=== PATIENT | male | born 1975 | race Caucasian/White ===

== ENCOUNTER 2016-09-29 02:51 | Emergency (ER) | payer OTHER ==
[~2016-09-29] VITALS: Ht 177.8 cm; Wt 99.8 kg
[~2016-09-29 02:51] MED LIST: ZITHROMAX250 M2 PO
[2016-09-29 03:04] VITALS: BP 114/76
--- NOTE | 2016-09-29 03:15 | ED GI/GU/ABDOMINAL COMPLAINT ---
History of Present Illness General Chief Complaint: Abdominal Pain/Flank Pain Stated Complaint: PAINFUL HERNIA PER PT Source: patient Exam Limitations: no limitations Vital Signs & Intake/Output Vital Signs & Intake/Output Vital Signs Date Time Temp Pulse Resp B/P Pulse O2 O2 Flow FiO2 Ox Delivery Rate 09/29 0304 96.1 86 18 114/76 98 Room Air Allergies Coded Allergies: NO KNOWN ALLERGIES (09/29/16) Reconcile Medications No Known Home Medications Triage Note: TRIAGE: PATIENT TO ER FROM HOME W/ HX HERNIA X MANY YEARS, REPORTS X 1-2 HOURS SEVERE INTERMITTENT SHARP PAINS TO HERNIA SITE. PATIENT REPORTS "DON'T KNOW IF IT GOES BACK IN OR NOT, JUST HURTS." PAIN 10/10 AT PRESENT. DENIES V/D, +SLIGHT NAUSEA. Triage Nurses Notes Reviewed? yes Onset: Abrupt Duration: hour(s): Timing: single episode today Quality/Severity: cramping Location: umbilical Radiation: no radiation Activities at Onset: none Modifying Factors: Worsens With: palpation. Associated Symptoms: "I have a hernia and its stuck." HPI: 40-year-old gentleman with history of an umbilical hernia presents with umbilical pain and swelling. He states that he awoke in the middle the night with umbilical pain. He states that there is a swelling where his hernia is. He is unable to reduce the hernia. He has mild nausea but no vomiting. He has no fever chills diarrhea. He is otherwise well and has no other concerns. Past History Travel History Traveled to [place] past 21 day No Medical History Any Pertinent Medical History? 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 No Review of Systems Review of Systems Constitutional: Reports: no symptoms. EENTM: Reports: no symptoms. Respiratory: Reports: no symptoms. Cardiovascular: Reports: no symptoms. GI: Reports: no symptoms. Genitourinary: Reports: no symptoms. Musculoskeletal: Reports: no symptoms. Skin: Reports: no symptoms. Neurological/Psychological: Reports: no symptoms. Hematologic/Endocrine: Reports: no symptoms. Immunologic/Allergic: Reports: no symptoms. All Other Systems: Reviewed and Negative Physical Exam Physical Exam General Appearance: well developed/nourished, mild distress, moderate distress Head: atraumatic Eyes: Bilateral: normal appearance. Ears, Nose, Throat, Mouth: hearing grossly normal Neck: normal inspection, supple, full range of motion Respiratory: normal breath sounds, chest non-tender, no respiratory distress, quiet respiration Cardiovascular: regular rate/rhythm Gastrointestinal: normal bowel sounds, no organomegaly, large umbilical hernia, approximately 6 x 6 cm, tender to palpation. Extremities: normal range of motion Neurologic/Psych: no motor/sensory deficits, awake, alert, oriented x 3 Skin: intact, normal color, warm/dry Core Measures ACS in differential dx? No Severe Sepsis Present: No Septic Shock Present: No Progress Differential Diagnosis: umbilical hernia versus other Plan of Care: Orders Procedure Date/time Status COMPREHENSIVE METABOLIC PANEL 09/29 330 Complete CBC WITHOUT DIFFERENTIAL 09/29 330 Complete TYPE & SCREEN (NOT X-MATCH) 09/29 330 Complete Laboratory Tests 09/29/16 0400: Anion Gap 11, Estimated GFR > 60, BUN/Creatinine Ratio 21.1, Glucose 123 H, Calcium 9.5, Total Bilirubin 0.8, AST 31, ALT 41, Alkaline Phosphatase 87, Total Protein 7.5, Albumin 4.3, Globulin 3.2, Albumin/Globulin Ratio 1.3, CBC w Diff MAN DIFF ORDERED, RBC 4.87, MCV 91.8, MCH 30.9, RDW 13.7, MPV 7.4, Gran % 91.6 H, Lymphocytes % 5.8 L, Monocytes % 2.4, Eosinophils % 0.1, Basophils % 0.1, Absolute Granulocytes 21.3 H, Segmented Neutrophils 90 H, Band Neutrophils 1, Absolute Lymphocytes 1.4, Lymphocytes 4 L, Monocytes 5, Absolute Monocytes 0.6, Absolute Eosinophils 0, Absolute Basophils 0, Platelet Estimate ADEQUATE, Normocytic RBCs VERIFIED, Normochromic RBCs VERIFIED, PUBS MCHC 33.6, Fld Total RBCs Counted 100 Diagnostic Imaging: Viewed by Me: CT Scan. Discussed w/RAD: CT Scan. Radiology Impression: ABD/PELVIC CT... FAT AND BOWEL CONTAINING HERNIA, WITHOUT OBSTRUCTION Initial ED EKG: none Comments: PATIENT: SNOW [place]AD[place] PRESENT AGE: 40 PATIENT ACCOUNT NO: [id number] : 74 LOCATION: [facility] ORDERING PHYSICIAN: LASHAWN REDMOND MD SERVICE DATE: 09/29/16 EXAM TYPE: CAT - CT ABD & PELVIS W/O IV CONTRAS EXAMINATION: CT ABDOMEN AND PELVIS WITHOUT CONTRAST CLINICAL INFORMATION: Abdominal pain. Umbilical hernia. COMPARISON: None. TECHNIQUE: Contiguous axial thin section helical images of the abdomen and pelvis were performed without oral or IV contrast. The data set was reformatted in the coronal and sagittal planes and reviewed on an independent workstation. DLP: 543 mGy-cm. FINDINGS: There is dependent bibasilar atelectasis there is a 6 mm nodule within the right lower lobe on image 40/784. There is mild bilateral lower lobe bronchial wall thickening. The visualized portions of the heart are unremarkable. There is a small hiatal hernia. The liver is of normal size and attenuation without focal lesions nor intrahepatic biliary ductal dilation. A normal gallbladder is identified. There is no wall thickening or discernible pericholecystic fluid. The spleen, pancreas, adrenal glands are unremarkable. Both kidneys are of normal size and attenuation without hydronephrosis or nephrolithiasis. There is no abdominal free fluid. There is neither mesenteric nor retroperitoneal lymphadenopathy. There is a bowel and fat-containing umbilical hernia without evidence of obstruction. There is sigmoid diverticulosis without evidence of diverticulitis. Otherwise, unremarkable unopacified loops of small and large bowel are identified. A normal appendix is identified. There is no pelvic free fluid. The urinary bladder is unremarkable. There is neither pelvic nor inguinal lymphadenopathy. There are bilateral fat-containing inguinal hernias. Bone windows: Neither sclerotic nor lytic bone lesions are identified. IMPRESSION: Fat and bowel containing umbilical hernia without evidence of obstruction. Sigmoid diverticulosis without evidence of diverticulitis. 6 mm right lower lobe pulmonary nodule. Various management parameters for solitary pulmonary nodules are in the literature. According to the Fleischner Society, recommendations for pulmonary nodules are as follows: Nodule size < or = to 4 mm in LOW RISK PATIENTS: No follow up needed. Nodule size < or = to 4 mm in HIGH RISK PATIENTS: Follow up CT at 12 months; if unchanged, no further follow up. Nodule size > 4-6 mm in LOW RISK PATIENTS: Follow up CT at 12 months; if unchanged, no further follow up. Nodule size > 4-6 mm in HIGH RISK PATIENTS: Initial follow up CT at 6-12 months, then at 18-24 months if no change. Nodule size > 6-8 mm in LOW RISK PATIENTS: Initial follow up CT at 6-12 months, then at 18-24 months if no change. Nodule size > 6-8 mm in HIGH RISK PATIENTS: Initial follow up CT at 3-6 months, then 9-12 months and 24 months if no change. Nodule size > 8 mm in LOW RISK PATIENTS: Follow up CT at around 3, 9, and 24 months, dynamic contrast-enhanced CT, PET, and/or biopsy. Nodule size > 8 mm in HIGH RISK PATIENTS: Same as for low-risk patients. DICTATED BY: TRISH LEE MD DATE/TIME DICTATED:09/29/16446 HADOOP CONSULTANT:AMBER DATE/TIME TRANSCRIBED:09/29/16446 CONFIDENTIAL, DO NOT COPY WITHOUT APPROPRIATE AUTHORIZATION. <Electronically signed in Other Vendor System> SIGNED BY: TRISH LEE MD 09/29/16 0458 Departure Departure Disposition: HOME OR SELF CARE Condition: Stable Clinical Impression Primary Impression: Umbilical hernia Secondary Impressions: Pulmonary nodules Referrals: PATIENT HAS NO PRIMARY CARE DR (PCP/Family) Departure Forms: Customer Survey General Discharge Information Prescriptions: Current Visit Scripts No Known Home Medications Comments 09/29/16, 5:20am... pt feeling well in ED after hernia reduction.... elevated wbc count noted... likely reactive given his painful hernia... I discussed this finding with him as well as the pulmonary nodules. He will follow up with the general surgeon and his PMD. He will return should his hernia recur. Procedures Additional Procedures Additional Procedures: hernia reduction Progress: with patient consent, with gentle pressure, the umbililcal hernia was easily reduced.
[2016-09-29 04:09] LABS: ABSOLUTE BASOPHIL COUNT 0 /CUMM (0.0-0.2); ABSOLUTE EOSINOPHIL COUNT 0 /CUMM (0.0-0.7); ABSOLUTE GRANULOCYTE CT 21.3 /CUMM (1.4-6.5); ABSOLUTE LYMPH COUNT 1.4 /CUMM (1.2-3.4); ABSOLUTE MONOCYTE COUNT 0.6 /CUMM (0.10-0.60); BASOPHIL % 0.1 % (0.0-2.0); EOSINOPHIL % 0.1 % (0-5); GRANULOCYTE % 91.6 % (42.2-75.2); HEMATOCRIT 44.7 % (42-52); MEAN CORPUSCULAR HGB 30.9 PG (27.0-31.0); MEAN CORPUSCULAR HGB CONC 33.6 G/DL (33.0-37.0); MEAN CORPUSCULAR VOLUME 91.8 FL (80.0-94.0); MEAN PLATELET VOLUME 7.4 FL (7.4-10.4); PLATELET COUNT 341 /CUMM (130-400); RBC DISTRIBUTION WIDTH 13.7 % (11.5-14.5); RED BLOOD CELL CT 4.87 /CUMM (4.70-6.10); WHITE BLOOD CELL COUNT 23.3 /CUMM (4.8-10.8)
--- NOTE | 2016-09-29 04:58 | CT SCAN REPORT ---
EXAMINATION: CT ABDOMEN AND PELVIS WITHOUT CONTRAST CLINICAL INFORMATION: Abdominal pain. Umbilical hernia. COMPARISON: None. TECHNIQUE: Contiguous axial thin section helical images of the abdomen and pelvis were performed without oral or IV contrast. The data set was reformatted in the coronal and sagittal planes and reviewed on an independent workstation. DLP: 543 mGy-cm. FINDINGS: There is dependent bibasilar atelectasis there is a 6 mm nodule within the right lower lobe on image 40/784. There is mild bilateral lower lobe bronchial wall thickening. The visualized portions of the heart are unremarkable. There is a small hiatal hernia. The liver is of normal size and attenuation without focal lesions nor intrahepatic biliary ductal dilation. A normal gallbladder is identified. There is no wall thickening or discernible pericholecystic fluid. The spleen, pancreas, adrenal glands are unremarkable. Both kidneys are of normal size and attenuation without hydronephrosis or nephrolithiasis. There is no abdominal free fluid. There is neither mesenteric nor retroperitoneal lymphadenopathy. There is a bowel and fat-containing umbilical hernia without evidence of obstruction. There is sigmoid diverticulosis without evidence of diverticulitis. Otherwise, unremarkable unopacified loops of small and large bowel are identified. A normal appendix is identified. There is no pelvic free fluid. The urinary bladder is unremarkable. There is neither pelvic nor inguinal lymphadenopathy. There are bilateral fat-containing inguinal hernias. Bone windows: Neither sclerotic nor lytic bone lesions are identified. IMPRESSION: Fat and bowel containing umbilical hernia without evidence of obstruction. Sigmoid diverticulosis without evidence of diverticulitis. 6 mm right lower lobe pulmonary nodule. Various management parameters for solitary pulmonary nodules are in the literature. According to the Fleischner Society, recommendations for pulmonary nodules are as follows: Nodule size < or = to 4 mm in LOW RISK PATIENTS: No follow up needed. Nodule size < or = to 4 mm in HIGH RISK PATIENTS: Follow up CT at 12 months; if unchanged, no further follow up. Nodule size > 4-6 mm in LOW RISK PATIENTS: Follow up CT at 12 months; if unchanged, no further follow up. Nodule size > 4-6 mm in HIGH RISK PATIENTS: Initial follow up CT at 6-12 months, then at 18-24 months if no change. Nodule size > 6-8 mm in LOW RISK PATIENTS: Initial follow up CT at 6-12 months, then at 18-24 months if no change. Nodule size > 6-8 mm in HIGH RISK PATIENTS: Initial follow up CT at 3-6 months, then 9-12 months and 24 months if no change. Nodule size > 8 mm in LOW RISK PATIENTS: Follow up CT at around 3, 9, and 24 months, dynamic contrast-enhanced CT, PET, and/or biopsy. Nodule size > 8 mm in HIGH RISK PATIENTS: Same as for low-risk patients.
== END 2016-09-29 05:26 ==
LOC: ERH 02:51
PROVIDERS: Pediatrics
DX: K42.9 Umbilical hernia without obstruction or gangrene (principal); R91.1 Solitary pulmonary nodule
CPT/HCPCS: 74176; 96361; 96374; 96375; 96376; J2405

== ENCOUNTER → 2016-10-19 | Day surgery (SDC) | payer OTHER ==
[~2016-10-19] VITALS: Ht 177.8 cm; Wt 95.3 kg
--- NOTE | 2016-10-19 13:19 | Operative Report ---
Operative/Inv Procedure Report Surgery Date: 10/19/16 Name of Procedure: Incarcerated umbilical hernia repair with mesh Pre-Operative Diagnosis: incarcerated umbilical hernia Post-Operative Diagnosis: same Estimated Blood Loss: scant Surgeon/Hearing Care Practitioner: OWEN ACUNA,KAE Villatoro/LO Rizzo Anesthesia: laryngeal mask airway Implants: 6.4cm Ventralex Operative/Procedure Note Note: After consent, patient brought to OR and laid supine. General anesthesia obtained and abcomen prepped and draped. Periumbical nerve block created with local anesthesia. A curvilear inferiorly based incision made sharply. The umbilical stalk was transected with cautery to expose the incarcerated omentum. The neck of the defect deliniated with cautery and transected. The contents of the hernia were then able to be reduced. The attenuated fascia excised with cutting cautery. The defect measured approx 3cm, and was chosen to be repaired iwth mesh. Preperitoneal planes created circumferentially in a blunt fashion. Hemostatis achieved with direct pressure. The mesh was placed into the cavity and unraveled below the defect. The fascia was closed over the mesh while incorporating the mesh in the closure to keep it centered. The wound was irritgated with saline. The umbilical stalk recreated with 3-0 vicryl and skin closed with 4-0 vicryl. Sterile dressing applied. sponge and needle counts were correct.
== END ==
LOC: STS 04:26
DX: K42.0 Umbilical hernia with obstruction, without gangrene (principal); I10 Essential (primary) hypertension; F17.200 Nicotine dependence, unspecified, uncomplicated
CPT/HCPCS: J0131; J0690; J1100; J2250; J2405

== ENCOUNTER 2017-12-24 10:27 | Emergency (ER) | payer OTHER ==
[~2017-12-24] VITALS: Ht 177.8 cm; Wt 95.3 kg
[~2017-12-24 10:27] MED LIST changes: +KEFLEX500 M1 PO
[2017-12-24 10:43] VITALS: BP 130/91
--- NOTE | 2017-12-24 10:58 | ED HAND/WRIST INJURY COMPLAINT ---
History of Present Illness General Chief Complaint: Hand or Wrist Injury Stated Complaint: FINGER INJURY AT WORK Source: patient, old records Exam Limitations: no limitations Vital Signs & Intake/Output Vital Signs & Intake/Output Vital Signs Date Time Temp Pulse Resp B/P B/P Pulse O2 O2 Flow FiO2 Mean Ox Delivery Rate 12/24 1142 97.9 12/24 1115 97 Room Air Room Air 12/24 1043 97.9 93 16 130/91 97 Room Air Allergies Coded Allergies: NO KNOWN ALLERGIES (09/29/16) Reconcile Medications Cephalexin (Keflex) 500 MG CAPSULE 1 CAP PO TID CELLULITIS Triage Note: PRESENTS TO ED FRO EVALUATION OF LEFT MIDDLE FINGER. 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 FINGER IS NOTED TO BE SWOLLEN. Triage Nurses Notes Reviewed? yes HPI: 42M no PMH with 2 days of left third finger pain after injuring it at work. He was stacking pallets when he bent the finger all the way back. Since then it has been swollen and painful. ROM is limited by swelling. No skin breaks. Full sensation. No other injury. Past History Travel History Traveled to [place] past 21 day No Medical History Any Pertinent Medical History? 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 No Review of Systems Review of Systems Constitutional: Reports: no symptoms. EENTM: Reports: no symptoms. Respiratory: Reports: no symptoms. Cardiovascular: Reports: no symptoms. GI: Reports: no symptoms. Genitourinary: Reports: no symptoms. Musculoskeletal: Reports: no symptoms. Skin: Reports: no symptoms. Neurological/Psychological: Reports: no symptoms. Hematologic/Endocrine: Reports: no symptoms. Immunologic/Allergic: Reports: no symptoms. All Other Systems: Reviewed and Negative Physical Exam Physical Exam General Appearance: well developed/nourished, no apparent distress, mild distress Head: atraumatic Eyes: Bilateral: normal appearance. Ears, Nose, Throat: normal ENT inspection, hearing grossly normal Neck: normal inspection, supple Cardiovascular/Respiratory: normal breath sounds, regular rate/rhythm Back: normal inspection Hand Left: edematous third finger, no erythema or skin break, non-tender, ROM limited by swelling, sensation intact, peripheral pulses intact throughout Hand Right: normal inspection, normal range of motion Skin: intact, normal color, warm/dry Lymphatic: no anterior cervical jordan Progress Differential Diagnosis: abscess, cellulitis, contusion, compartment syndrome, dislocation, felon, fracture, gout, paronychia, septic arthritis, sprain, tenosynovitis Plan of Care: X-ray negative. Given finger splint to protect it while working. Diagnostic Imaging: Viewed by Me: Radiology Read. Discussed w/RAD: Radiology Read. Radiology Impression: PATIENT: SNOW [place] PRESENT AGE: 42 PATIENT ACCOUNT NO: [id number] : 74 LOCATION: [facility] ORDERING PHYSICIAN: Ana Maria Hernández MD SERVICE DATE: 12/24/17 EXAM TYPE : RAD - XRY-HAND, LEFT EXAMINATION: XR HAND, LEFT CLINICAL INFORMATION: Left third finger pain and swelling after hyperextension injury. COMPARISON: None TECHNIQUE: PA, lateral, and oblique views of the left hand. FINDINGS: Soft tissues of the third digit are swollen. Bones have normal alignment and the joint spaces are maintained. No evidence of acute fracture or subluxation. No osseous erosion or periostitis. IMPRESSION: 1. Soft tissue swelling of the third digit. 2. No acute fracture or malalignment. DICTATED BY: Jeff Roy MD DATE/TIME DICTATED:12/24/171124 PLANNING LEAD:AMBER DATE/TIME TRANSCRIBED:12/24/171124 CONFIDENTIAL, DO NOT COPY WITHOUT APPROPRIATE AUTHORIZATION. <Electronically signed in Other Vendor System> SIGNED BY: Jeff Roy MD 12/24/17 1130 Departure Departure Disposition: HOME OR SELF CARE Condition: Stable Clinical Impression Primary Impression: Sprain of finger of left hand Referrals: Patient Has No Primary Care Dr (PCP/Family) Additional Instructions: Follow up with your PCP. Keep the hand elevated when possible. You can use ice for 20 minutes on and off for swelling and Ibuprofen for pain. If the finger changes color, becomes numb, becomes weak, or any other new or worsening symptoms, return to ER. Departure Forms: Customer Survey General Discharge Information
--- NOTE | 2017-12-24 11:30 | RADIOLOGY REPORT ---
EXAMINATION: XR HAND, LEFT CLINICAL INFORMATION: Left third finger pain and swelling after hyperextension injury. COMPARISON: None TECHNIQUE: PA, lateral, and oblique views of the left hand. FINDINGS: Soft tissues of the third digit are swollen. Bones have normal alignment and the joint spaces are maintained. No evidence of acute fracture or subluxation. No osseous erosion or periostitis. IMPRESSION: 1. Soft tissue swelling of the third digit. 2. No acute fracture or malalignment.
== END 2017-12-24 11:56 ==
LOC: ERH 10:27
DX: S63.613A Unspecified sprain of left middle finger, initial encounter (principal); X58.XXXA Exposure to other specified factors, initial encounter; Y92.9 Unspecified place or not applicable; Y93.9 Activity, unspecified
CPT/HCPCS: 73130-LT